=== PATIENT | male | born 1945 | race Caucasian/White ===

== ENCOUNTER 2024-05-18 10:40 | Outpatient (CLI) | payer MEDICARE, SELFPAY ==
--- OUTSIDE RECORDS SUMMARY | 2024-05-18 10:43 | XMS_ITS | Referral Summary ---
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 Impaired fasting glucose 12/23/2008 Gout 12/20/2008 Adenomatous polyp of colon 12/20/2008 Nondependent alcohol abuse 12/20/2008 Tobacco abuse 12/20/2008 DVT Overview: left lower extermity, warfarin x 3 months Immunizations Name Administration Dates Next Due Influenza (High Dose) 3 valent vaccine 5,06/30/2014,07/06/2013 Influenza (IIV3) PF 07/02/2012,07/01/2010,2008 Influenza Vaccine 65+ (Fluzone HD) 06/14/2020 Social History Tobacco Use Types Packs/Day Years Used Date Smoking Tobacco: Never Assessed Smokeless Tobacco: Current Snuff Comments:daily Alcohol Use Standard Drinks/Week Comments Yes 0 (1 standard drink = 0.6 oz pur e alcohol) beer 6-8/day Adolescent Education Answer Date Record ed Getting School Help Needed Not on file 07/07 Sex and Gender Information Value Date Recorded Sex Assigned at Not on file Gender Identity Not on file Sexual Orientation Not on file Last Filed Vital Signs Vital Sign Reading Time Taken Comments Blood Pressure 123/75 07/06/2013 9:13 AM CDT Pulse 71 07/06/2013 9:13 AM CDT Temperature 36.4 ??C (97.6 ??F) 07/02/2012 9:11 AM CD T Respiratory Rate - - Oxygen Saturation 98% 12/20/2008 9:39 AM CDT Inhaled Oxygen Concentration - - Weight 91.4 kg (201 lb 9 oz) 12/20/2008 9:39 AM CDT Height 177.8 cm (5' 10) 12/20/2008 9:39 AM CDT Body Mass Index 28.92 12/20/2008 9:39 AM CDT Plan of Treatment Not on file Care Teams Mold Cutting Machine Operator Relationship Specialty Start Date End Date Clinic, [place], [place] PCP - General 01/01/18
--- OUTSIDE RECORDS SUMMARY | 2024-05-18 10:43 | XMS_ITS | Clinical Summary ---
Author Organization [place] Address [address] [place] [address] Care Team Providers Care Program/Music Director Name Role Phone [facility] Primary Care Provider Allergies No known active [...] 07/02/2012,07/01/2010,2008 Influenza Vaccine 65+ (Fluzone HD) 06/14/2020 Family History Medical History Relation Comments Cancer Brother throat C.A.D. Father 82 Diabetes Father C.A.D. Mother CVA in 80s Relation Status Comments Brother Father Mother Social History Tobacco Use Types Packs/Day Years [...] of Treatment Not on file Care Teams Program/Music Director Relationship Specialty Start Date End Date Clinic, [place], [place] PCP - General 01/01/18
--- OUTSIDE RECORDS SUMMARY | 2024-05-18 10:43 | XMS_ITS | Encounter Summary ---
Author Organization [facility] Address [address] [place] [address]. [place] [address] Care Team Providers Care Wool Grower Name Role Phone [facility] Primary Care Provider Encounter Details Date Type Department Care Team (Late st Contact Info) Description 06/24/2018 Orders Only [facility] [address] [place] [phone] Richard Hunt MD [facility] [address] [place] [address] Personal history of thrombophlebitis (Primary Dx) Social History Tobacco Use Types Packs/Day Years Used Date Smoking Tobacco: Never Assessed Smokeless Tobacco: Current Snuff Comments:daily Alcohol Use Standard Drinks/Week Comments Yes 0 (1 standard drink = 0.6 oz pur e alcohol) beer 6-8/day Sex and Gender Information Value Date Recorded Sex Assigned at Not on file Gender Identity Not on file Sexual Orientation Not on file documented as of this encounter Plan of Treatment Not on file documented as of this encounter Visit Diagnoses Diagnosis Personal history of thrombophlebitis- Primary documented in this encounter Care Teams Wool Grower Relationship Specialty Start Date End Date [place], [place] PCP - General 01/01/18 documented as of this encounter
--- OUTSIDE RECORDS SUMMARY | 2024-05-18 10:44 | XMS_ITS | Encounter Summary ---
Author Organization [facility] Address [address] [place] [address]. [place] [address] Care Team Providers Care Fur Blowing Machine Attendant Name Role Phone Fam Wilson MD Primary Care Provider [facility] Primary Ca re Provider [facility] Primary Care Provider Encounter Details Date Type Department Care Team (Late st Contact Info) Description 04/15/[address] [phone] [place] [address] Social History Tobacco Use Types Packs/Day Years [...] on file documented as of this encounter Progress Notes * Trang Metz MD - 04/15/2009 10:31 PM CDT CC: SOB and Right sided chest pain. HPI: Jose Juan Messina is a 63 year old male with a history of gout who presented to the ER with a history of CP since Thursday. Has been getting increasingly worse. Primarily Right sided. Pleuritic. +SOBespecially with any exertion. No cough or fevers. No palpitations. Patient does have a history of DVT about 15 years ago. Was on Coumadin for several months. +brothers and father with history of DVT also. No history of recent surgery or immobilization. No abdominal pain. No history of rectal bleeding. Past Medical History Diagnosis Date ??? Sciatica 2004 resolved ??? DVT left lower extermity, warfarin x 3 months ??? Gout Past Surgical History Procedure Date ??? Surgical history of - elbow repair ??? Hernia repair, inguinal rt/lt 1971 LT ??? Arthroscopy knee rt/lt LT No Known Allergies. Current outpatient prescriptions Medication Sig ??? ALLOPURINOL 100 MG OR TABS 3 tabs daily Family History: Father history of DVT's, of a AK in his 80's. 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 with 2 children. Non smoker, but chews tobacco. Drinks anywhere from 6-12 beers a day. No history of withdrawal. Does not feel like he has a problem. Has not tried to cut back. Has not gotten in trouble secondary to his ETOH use. Full Code. Has a living will. Review Of Systems Skin: negative Eyes: negative Ears/Nose/Throat: negative Respiratory: as above Cardiovascular: as above Gastrointestinal: negative Genitourinary: negative Musculoskeletal: negative Neurologic: negative O: T-97.9, P-58, BP 142/87, 96% RA. Gen: Awake, alert, answering questions appropriately HEENT: TM's clear bilaterally. Mucous Membranes pink, moist. Sclera nonicteric. Neck: Supple. No adenopathy. Thyroid Midline. No masses CV: RRR No S3, S4, murmurs Lungs: CTA bilaterally Abdomen: + BS. Soft. NT/ND. No masses Extremities: No C/C/E Neuro: CN II-XII grossly intact. Strength 5/5 and symmetrical in extremities. FTN-FTF intact Labs See FCIS Bilateral lower extremity dopplers:Deep venous thrombosis involving the right superficial femoral and popliteal vein. 2. Normal left lower extremity venous Doppler CT Chest:-Extensive bilateral pulmonary emboli most marked on the right. 2. Increased density in the right lung base which could represent atelectasis or a developing infarction. 3. Remainder of the scan is negative. ASSESSMENT:/PLAN: 1. Bilateral PE, Rt. Lower Extremity DVT-history of DVT 15 years ago. Hemodynamically stable. Lovenox started in the ER. Coagulopathy workup started in the ER. Will start Coumadin. Monitor on Tele. Will have Heme/Onc see in AM- ?recommendations for futher workup and therapy. Patient very resistant to termite treater Coumadin use. 2. History of ETOH use-patient drinks 6-12 beers a day. No known history of withdrawal. Will start Protocol. Discussed risk of Coumadin and ETOH use. 3. History of Gout-stable. Will continue with Allopurinol. 4. F/E/N-taking good po's 5. Disp: Anticipate several day stay. Trang Metz MD Pager documented in this encounter Plan of Treatment Not on file documented as of this encounter Visit Diagnoses Not on filedocumented in this encounter Care Teams Fur Blowing Machine Attendant Relationship Specialty Start Date End Date Fam Wilson MD PCP - General 12/20/08 12/24/15 [facility] [address] [place] [address] PCP - General 12/25/15 12/31/17 [place], [place] PCP - General 01/01/18 documented as of this encounter
--- OUTSIDE RECORDS SUMMARY | 2024-05-18 10:44 | XMS_ITS | Continuity of Care Document ---
Author Name [facility] Organization [facility] Care Team Providers Care Museum Host/Hostess Name Role Phone [facility] Unavailable Unavailable Problems Combined list of problems from Department of Defense and Veterans Affairs facilities. It does not include entries that were removed or entered in error. 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 Young [facility] Benign essential hypertension (SNOMED CT 7708837) Active Condition [facility] Benign prostatic hyperplasia Active Condition [facility] Heartburn * (ICD-9-CM 787.1) Active Condition [facility] Hypercholesterolemia * (ICD-9-CM 272.0) [facility] 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 Medications Combined list of outpatient medications from Department of Defense and Veterans Affairs facilities.Medications provided include 1) outpatient medications from the last 15 months, and 2) patient-reported medications. Medication Details Route Status Patient Instructions Prescription Expires Prescription Number Last Dispense Date Ordering Provider Order Date Order Qty Source ALLOPURINOL 300MG TAB ALLOPURI NOL 300MG TAB Active TAKE ONE TABLET BY MOUTH EVERY DAY TO PREVENT GOUT Oct 27, 2023 90 Oct 27, 2024 [id number] M Apr 25, 2024 Fletcher PEREZ [facility] 10/27/2024 [id number] JOSE PEREZ Y 2023 90 [facility] ALLOPURINOL 300MG TAB ALLOPURI NOL 300MG TAB Disconti nued TAKE ONE TABLET BY MOUTH EVERY DAY TO PREVENT GOUT Oct 27, 2022 90 Oct 29, 2023 [id number] L Jul 29, 2023 Fletcher PEREZ [facility] OR[facility] DISCONT INUED 10/29/2023 [id number] JOSE PEREZ Y 2022 90 [facility] APIXABAN 5MG TAB APIXABAN 5MG TAB Active TAKE ONE TABLET BY MOUTH EVERY 12 HOURS TO PREVENT AND/OR TREAT BLOOD CLOTS Nov 24, 2023 180 Nov 25, 2024 [id number] C Mar 10, 2024 TAMYT LETTY,JOE Shirley [facility] 11/25/2024 [id number] ELIZABETH DUBOIS 2023 180 [facility] APIXABAN 5MG TAB APIXABAN 5MG TAB Disconti nued TAKE ONE TABLET BY MOUTH EVERY 12 HOURS TO PREVENT AND/OR TREAT BLOOD CLOTS Oct 11, 2022 180 Oct 12, 2023 [id number] B Sep 01, 2023 LUISITOWALT LETTY,JOE Shirley [facility] ORAL DISCONT INUED 10/12/2023 [id number] ELIZABETH DUBOIS 2022 180 [facility] GLUCOSAMINE CAP/TAB GLUCOSAM INE CAP/TAB Non-VA TAKE BY MOUTH EVERY DAY Jun 30, 2017 Non-VA Document ed by: Fletcher PEREZ Document ed at: [facility] JOSE PEREZ 2016 [facility] LISINOPRIL 40MG TAB LISINOPR [place] 40MG TAB Active TAKE ONE TABLET BY MOUTH EVERY DAY Oct 27, 2023 90 Oct 27, 2024 [id number] B Apr 25, 2024 [facility] 10/27/2024 [id number] 4 Yadiel SANTANA A 2023 90 [facility] LISINOPRIL 40MG TAB LISINOPR [place] 40MG TAB Disconti nued TAKE ONE TABLET BY MOUTH EVERY DAY Oct 27, 2022 90 Oct 29, 2023 [id number] A Jul 29, 2023 CALIN SANTANA [facility] ORAL DISCONT INUED 10/29/2023 [id number] 3 Yadiel SANTANA A 2022 90 [facility] SIMVASTATIN 20MG TAB SIMVASTA TIN 20MG TAB Active TAKE ONE TABLET BY MOUTH AT BEDTIME FOR CHOLESTE ROL FOR CHOLESTE ROL Nov 09, 2023 90 Nov 10, 2024 [id number] A Apr 29, 2024 CALIN SANTANA [facility] 11/10/2024 [id number] 4 Yadiel SANTANA A 2023 90 [facility] SIMVASTATIN 20MG TAB SIMVASTA TIN 20MG TAB Disconti nued TAKE ONE TABLET BY MOUTH AT BEDTIME FOR CHOLESTE ROL FOR CHOLESTE ROL Oct 29, 2022 90 Oct 30, 2023 [id number] Jul 29, 2023 CALIN SANTANA [facility] OR[facility] DISCONT INUED 10/30/2023 [id number] 3 Yadiel SANTANA A 2022 90 [facility] Immunizations Combined list of available immunizations from the Department of Defense and Veterans Affairs facilities. Immunization Series Date Given Administered By Site Reaction Lot Number CVX Code Drug Naturopathic Physician Status Comments Source TDAP 2022 HOANG BALTAZAR LEFT DELTO ID [id number] 115 complet ed [facility] INFLUENZA, UNSPECIFIED FORMULATION 2021 88 complet ed [facility] COVID-19 (PFIZER), MRNA, LNP-S, PF, 30 MCG/0.3 ML DOSE 3 2020 208 complet ed [facility] INFLUENZA, UNSPECIFIED FORMULATION 2020 88 complet ed [facility] COVID-19 (PFIZER), MRNA, LNP-S, PF, 30 MCG/0.3 ML DOSE 2 2020 208 complet ed PFR; [id number]; 1 [facility] COVID-19 (PFIZER), MRNA, LNP-S, PF, 30 MCG/0.3 ML DOSE 1 2020 208 complet ed PFR; [id number]; 1 [facility] ZOSTER RECOMBINANT 2 2019 187 complet ed [facility] ZOSTER RECOMBINANT 1 2018 187 complet ed [facility] INFLUENZA, HIGH DOSE SEASONAL 2018 135 complet ed [facility] INFLUENZA, SEASONAL, INJECTABLE, PRESERVATIVE FREE 2017 140 complet ed [facility] INFLUENZA, HIGH DOSE SEASONAL 2016 135 complet ed [facility] INFLUENZA, HIGH DOSE SEASONAL 2015 135 complet ed [facility] PNEUMOCOCCAL CONJUGATE PCV 13 2014 133 complet ed [id number], 09/2016 [facility] INFLUENZA, UNSPECIFIED FORMULATION 2012 88 complet ed [facility] PNEUMOCOCCAL, UNSPECIFIED FORMULATION 2012 109 complet ed [id number] 4Jul14 [facility] INFLUENZA, UNSPECIFIED FORMULATION 2011 88 complet ed [facility] INFLUENZA, UNSPECIFIED FORMULATION 2010 88 complet ed [facility] ZOSTER LIVE 2010 121 complet ed [employer], [id number], [id number] [facility] TDAP 2010 115 complet ed [employer] P[employer],c [id number], jan 01 2013 [facility] INFLUENZA, UNSPECIFIED FORMULATION 2009 88 complet ed per pt [facility] INFLUENZA, UNSPECIFIED FORMULATION 2008 88 complet ed [facility] TD(ADULT) UNSPECIFIED FORMULATION 2005 139 complet ed [facility] Results Combined list of recent chemistry, hematology and other laboratory results from Department of Defense and Veterans Affairs, ranging from 15 months to all on record, depending upon the facility. Order Name Results Value Reference Range Date Interpretation Specimen Comments Source CREATININ E(INCLUDE S EGFR) CREATININE [MASS/VOLUM E] IN SERUM OR PLASMA 1.0 mg/dL 0.7 - 1.2 06/09 Specimen Type: PLASMA No comment entered. Ordering Provider: MARIA A CAMARA Report Released Date/Time: May 28, 2023 03:16 PM Reporting Lab: [facility] [phone] Performing Lab: [facility] [address] [facility] CREATININ E(INCLUDE S EGFR) GLOMERULAR FILTRATION RATE/1.73 SQ M.PREDICTED [VOLUME RATE/AREA] IN SERUM, PLASMA OR BLOOD BY CREATININE- BASED FORMULA (CKD-EPI 2020) 78 60 06/09 Specimen Type: PLASMA No comment entered. Ordering Provider: MARIA A CAMARA Report Released Date/Time: May 28, 2023 03:16 PM Reporting Lab: [facility] [phone] Performing Lab: [facility] [address] [facility] AST/SGOT ASPARTATE AMINOTRANSF ERASE [ENZYMATIC ACTIVITY/VO LUME] IN SERUM OR PLASMA 21 U/L <34 - 34 06/09 Specimen Type: PLASMA No comment entered. Ordering Provider: MARIA A CAMARA Report Released Date/Time: May 28, 2023 03:16 PM Reporting Lab: [facility] [phone] Performing Lab: [facility] [address] [place] [facility] ALT/SGPT ALANINE AMINOTRANSF ERASE [ENZYMATIC ACTIVITY/VO LUME] IN SERUM OR PLASMA 23 U/L <55 - 55 06/09 Specimen Type: PLASMA No comment entered. Ordering Provider: MARIA A CAMARA Report Released Date/Time: May 28, 2023 03:16 PM Reporting Lab: [facility] [address] Performing Lab: [facility] [address] [place] [facility] CBC LEUKOCYTES [#/VOLUME] IN BLOOD BY AUTOMATED COUNT 6.96 10*3/u L 4.0 - 11.0 06/09 Specimen Type: BLOOD No comment entered. Ordering Provider: MARIA A CAMARA Report Released Date/Time: May 28, 2023 03:16 PM Reporting Lab: [facility] [address] Performing Lab: [facility] [address] [place] [facility] CBC ERYTHROCYTE S [#/VOLUME] IN BLOOD BY AUTOMATED COUNT 4.92 10*6/u L 4.6 - 6.2 06/09 Specimen Type: BLOOD No comment entered. Ordering Provider: MARIA A CAMARA Report Released Date/Time: May 28, 2023 03:16 PM Reporting Lab: [facility] [address] Performing Lab: [facility] [phone] [place] [facility] CBC HEMOGLOBIN [MASS/VOLUM E] IN BLOOD 16.1 g/dL 13.5 - 17.9 06/09 Specimen Type: BLOOD No comment entered. Ordering Provider: MARIA A CAMARA Report Released Date/Time: May 28, 2023 03:16 PM Reporting Lab: [facility] [phone] Performing Lab: [facility] [phone] [place] [facility] CBC HEMATOCRIT [VOLUME FRACTION] OF BLOOD BY AUTOMATED COUNT 44.7 41 - 54 06/09 Specimen Type: BLOOD No comment entered. Ordering Provider: MARIA A CAMARA Report Released Date/Time: May 28, 2023 03:16 PM Reporting Lab: [facility] [phone] Performing Lab: [facility] [address] [place] [facility] CBC MCV [ENTITIC VOLUME] BY AUTOMATED COUNT 90.9 fL 80 - 100 06/09 Specimen Type: BLOOD No comment entered. Ordering Provider: MARIA A CAMARA Report Released Date/Time: May 28, 2023 03:16 PM Reporting Lab: [facility] [phone] Performing Lab: [facility] [phone] [place] [facility] CBC MCH [ENTITIC MASS] BY AUTOMATED COUNT 32.7 pg 27 - 33 06/09 Specimen Type: BLOOD No comment entered. Ordering Provider: MARIA A CAMARA Report Released Date/Time: May 28, 2023 03:16 PM Reporting Lab: [facility] [phone] Performing Lab: [facility] [phone] [place] [facility] CBC MCHC [MASS/VOLUM E] BY AUTOMATED COUNT 36.0 g/dL 32.0 - 37.5 06/09 Specimen Type: BLOOD No comment entered. Ordering Provider: MARIA A CAMARA Report Released Date/Time: May 28, 2023 03:16 PM Reporting Lab: [facility] [phone] Performing Lab: [facility] [phone] [place] [facility] CBC PLATELETS [#/VOLUME] IN BLOOD BY AUTOMATED COUNT 237 10*3/u L 150 - 400 06/09 Specimen Type: BLOOD No comment entered. Ordering Provider: MARIA A CAMARA Report Released Date/Time: May 28, 2023 03:16 PM Reporting Lab: [facility] [phone] Performing Lab: [facility] [address] [place] [facility] CBC PLATELET MEAN VOLUME [ENTITIC VOLUME] IN BLOOD BY AUTOMATED COUNT 9.4 fL 7.4 - 10.4 06/09 Specimen Type: BLOOD No comment entered. Ordering Provider: MARIA A CAMARA Report Released Date/Time: May 28, 2023 03:16 PM Reporting Lab: [facility] [phone] Performing Lab: [facility] [phone] [place] [facility] CBC ERYTHROCYTE DISTRIBUTIO N WIDTH [RATIO] BY AUTOMATED COUNT 13.4 11.5 - 14.5 06/09 Specimen Type: BLOOD No comment entered. Ordering Provider: MARIA A CAMARA Report Released Date/Time: May 28, 2023 03:16 PM Reporting Lab: [facility] [address] Performing Lab: [facility] [address] [place] [facility] AST/SGOT ASPARTATE AMINOTRANSF ERASE [ENZYMATIC ACTIVITY/VO LUME] IN SERUM OR PLASMA 31 U/L <34 - 34 10/28 Specimen Type: PLASMA Comment: Elevated triglycerid e result from a non-fasting specimen should be interpreted with caution. A fasting panel is recommended for accurate triglycerid es when trigs are >200 from a non-fasting specimen. Ordering Provider: RACHEL SANTANA Report Released Date/Time: Oct 23, 2021 10:16 AM Reporting Lab: [facility] [phone] Performing Lab: [facility] [phone] [place] [facility] ALT/SGPT ALANINE AMINOTRANSF ERASE [ENZYMATIC ACTIVITY/VO LUME] IN SERUM OR PLASMA 40 U/L <55 - 55 10/28 Specimen Type: PLASMA Comment: Elevated triglycerid e result from a non-fasting specimen should be interpreted with caution. A fasting panel is recommended for accurate triglycerid es when trigs are >200 from a non-fasting specimen. Ordering Provider: RACHEL SANTANA Report Released Date/Time: Oct 23, 2021 10:16 AM Reporting Lab: [facility] [address] Performing Lab: [facility] [address] [place] [facility] CBC LEUKOCYTES [#/VOLUME] IN BLOOD BY AUTOMATED COUNT 6.41 10*3/u L 4.0 - 11.0 10/28 Specimen Type: BLOOD No comment entered. Ordering Provider: RACHEL SANTANA Report Released Date/Time: Oct 23, 2021 10:16 AM Reporting Lab: [facility] [phone] Performing Lab: [facility] [address] [place] [facility] CBC ERYTHROCYTE S [#/VOLUME] IN BLOOD BY AUTOMATED COUNT 4.66 10*6/u L 4.6 - 6.2 10/28 Specimen Type: BLOOD No comment entered. Ordering Provider: RACHEL SANTANA Report Released Date/Time: Oct 23, 2021 10:16 AM Reporting Lab: [facility] [phone] Performing Lab: [facility] [address] [place] [facility] CBC HEMOGLOBIN [MASS/VOLUM E] IN BLOOD 15.2 g/dL 13.5 - 17.9 10/28 Specimen Type: BLOOD No comment entered. Ordering Provider: RACHEL SANTANA Report Released Date/Time: Oct 23, 2021 10:16 AM Reporting Lab: [facility] [address] Performing Lab: [facility] [address] [place] [facility] CBC HEMATOCRIT [VOLUME FRACTION] OF BLOOD BY AUTOMATED COUNT 43.5 41 - 54 10/28 Specimen Type: BLOOD No comment entered. Ordering Provider: RACHEL SANTANA Report Released Date/Time: Oct 23, 2021 10:16 AM Reporting Lab: [facility] [phone] Performing Lab: [facility] [phone] [place] [facility] CBC MCV [ENTITIC VOLUME] BY AUTOMATED COUNT 93.3 fL 80 - 100 10/28 Specimen Type: BLOOD No comment entered. Ordering Provider: RACHEL SANTANA Report Released Date/Time: Oct 23, 2021 10:16 AM Reporting Lab: [facility] [phone] Performing Lab: [facility] [phone] [place] [facility] CBC MCH [ENTITIC MASS] BY AUTOMATED COUNT 32.6 pg 27 - 33 10/28 Specimen Type: BLOOD No comment entered. Ordering Provider: RACHEL SANTANA Report Released Date/Time: Oct 23, 2021 10:16 AM Reporting Lab: [facility] [address] Performing Lab: [facility] [address] [place] [facility] CBC MCHC [MASS/VOLUM E] BY AUTOMATED COUNT 34.9 g/dL 32.0 - 37.5 10/28 Specimen Type: BLOOD No comment entered. Ordering Provider: RACHEL SANTANA Report Released Date/Time: Oct 23, 2021 10:16 AM Reporting Lab: [facility] [address] Performing Lab: [facility] [address] [place] [facility] CBC PLATELETS [#/VOLUME] IN BLOOD BY AUTOMATED COUNT 181 10*3/u L 150 - 400 10/28 Specimen Type: BLOOD No comment entered. Ordering Provider: RACHEL SANTANA Report Released Date/Time: Oct 23, 2021 10:16 AM Reporting Lab: [facility] [address] Performing Lab: [facility] [address] [facility] CBC PLATELET MEAN VOLUME [ENTITIC VOLUME] IN BLOOD BY AUTOMATED COUNT 9.9 fL 7.4 - 10.4 10/28 Specimen Type: BLOOD No comment entered. Ordering Provider: RACHEL SANTANA Report Released Date/Time: Oct 23, 2021 10:16 AM Reporting Lab: [facility] [phone] Performing Lab: [facility] [address] [facility] CBC ERYTHROCYTE DISTRIBUTIO N WIDTH [RATIO] BY AUTOMATED COUNT 12.7 11.5 - 14.5 10/28 Specimen Type: BLOOD No comment entered. Ordering Provider: RACHEL SANTANA Report Released Date/Time: Oct 23, 2021 10:16 AM Reporting Lab: [facility] [phone] Performing Lab: [facility] [address] [facility] URIC ACID URATE [MASS/VOLUM E] IN SERUM OR PLASMA 5.7 mg/dL 3.5 - 7.2 10/28 Specimen Type: PLASMA Comment: Elevated triglycerid e result from a non-fasting specimen should be interpreted with caution. A fasting panel is recommended for accurate triglycerid es when trigs are >200 from a non-fasting specimen. Ordering Provider: RACHEL SANTANA Report Released Date/Time: Oct 23, 2021 10:16 AM Reporting Lab: [facility] [phone] Performing Lab: [facility] [address] [place] [facility] BASIC METABOLIC PANEL+MG CREATININE [MASS/VOLUM E] IN SERUM OR PLASMA 1.1 mg/dL 0.7 - 1.2 10/28 Specimen Type: PLASMA Comment: Elevated triglycerid e result from a non-fasting specimen should be interpreted with caution. A fasting panel is recommended for accurate triglycerid es when trigs are >200 from a non-fasting specimen. Ordering Provider: RACHEL SANTANA Report Released Date/Time: Oct 23, 2021 10:16 AM Reporting Lab: [facility] [phone] Performing Lab: [facility] [phone] [place] [facility] BASIC METABOLIC PANEL+MG UREA NITROGEN [MASS/VOLUM E] IN SERUM OR PLASMA 16 mg/dL 8 - 26 10/28 Specimen Type: PLASMA Comment: Elevated triglycerid e result from a non-fasting specimen should be interpreted with caution. A fasting panel is recommended for accurate triglycerid es when trigs are >200 from a non-fasting specimen. Ordering Provider: RACHEL SANTANA Report Released Date/Time: Oct 23, 2021 10:16 AM Reporting Lab: [facility] [phone] Performing Lab: [facility] [phone] [place] [facility] BASIC METABOLIC PANEL+MG GLUCOSE [MASS/VOLUM E] IN SERUM OR PLASMA 88 mg/dL 70 - 100 10/28 Specimen Type: PLASMA Comment: Elevated triglycerid e result from a non-fasting specimen should be interpreted with caution. A fasting panel is recommended for accurate triglycerid es when trigs are >200 from a non-fasting specimen. Ordering Provider: RACHEL SANTANA Report Released Date/Time: Oct 23, 2021 10:16 AM Reporting Lab: [facility] [phone] Performing Lab: [facility] [address] [place] [facility] BASIC METABOLIC PANEL+MG SODIUM [MOLES/VOLU ME] IN SERUM OR PLASMA 137 mmol/L 136 - 145 10/28 Specimen Type: PLASMA Comment: Elevated triglycerid e result from a non-fasting specimen should be interpreted with caution. A fasting panel is recommended for accurate triglycerid es when trigs are >200 from a non-fasting specimen. Ordering Provider: RACHEL SANTANA Report Released Date/Time: Oct 23, 2021 10:16 AM Reporting Lab: [facility] [phone] Performing Lab: [place] [phone] [place] [facility] BASIC METABOLIC PANEL+MG POTASSIUM [MOLES/VOLU ME] IN SERUM OR PLASMA 4.3 mmol/L 3.5 - 5.1 10/28 Specimen Type: PLASMA Comment: Elevated triglycerid e result from a non-fasting specimen should be interpreted with caution. A fasting panel is recommended for accurate triglycerid es when trigs are >200 from a non-fasting specimen. Ordering Provider: RACHEL SANTANA Report Released Date/Time: Oct 23, 2021 10:16 AM Reporting Lab: [facility] [phone] Performing Lab: [facility] [phone] [place] [facility] BASIC METABOLIC PANEL+MG CHLORIDE [MOLES/VOLU ME] IN SERUM OR PLASMA 105 mmol/L 98 - 107 10/28 Specimen Type: PLASMA Comment: Elevated triglycerid e result from a non-fasting specimen should be interpreted with caution. A fasting panel is recommended for accurate triglycerid es when trigs are >200 from a non-fasting specimen. Ordering Provider: RACHEL SANTANA Report Released Date/Time: Oct 23, 2021 10:16 AM Reporting Lab: [facility] [phone] Performing Lab: [facility] [phone] [place] [facility] BASIC METABOLIC PANEL+MG CARBON DIOXIDE, TOTAL [MOLES/VOLU ME] IN SERUM OR PLASMA 25 mmol/L 22 - 29 10/28 Specimen Type: PLASMA Comment: Elevated triglycerid e result from a non-fasting specimen should be interpreted with caution. A fasting panel is recommended for accurate triglycerid es when trigs are >200 from a non-fasting specimen. Ordering Provider: RACHEL SANTANA Report Released Date/Time: Oct 23, 2021 10:16 AM Reporting Lab: [facility] [phone] Performing Lab: [facility] [phone] [place] [facility] BASIC METABOLIC PANEL+MG CALCIUM [MASS/VOLUM E] IN SERUM OR PLASMA 9.1 mg/dL 8.4 - 10.2 10/28 Specimen Type: PLASMA Comment: Elevated triglycerid e result from a non-fasting specimen should be interpreted with caution. A fasting panel is recommended for accurate triglycerid es when trigs are >200 from a non-fasting specimen. Ordering Provider: RACHEL SANTANA Report Released Date/Time: Oct 23, 2021 10:16 AM Reporting Lab: [facility] [phone] Performing Lab: [facility] [phone] [place] [facility] BASIC METABOLIC PANEL+MG MAGNESIUM [MASS/VOLUM E] IN SERUM OR PLASMA 2.0 mg/dL 1.6 - 2.6 10/28 Specimen Type: PLASMA Comment: Elevated triglycerid e result from a non-fasting specimen should be interpreted with caution. A fasting panel is recommended for accurate triglycerid es when trigs are >200 from a non-fasting specimen. Ordering Provider: RACHEL SANTANA Report Released Date/Time: Oct 23, 2021 10:16 AM Reporting Lab: [facility] [phone] Performing Lab: [facility] [address] [place] [facility] BASIC METABOLIC PANEL+MG ANION GAP IN SERUM OR PLASMA 7 mmol/L 5 - 15 10/28 Specimen Type: PLASMA Comment: Elevated triglycerid e result from a non-fasting specimen should be interpreted with caution. A fasting panel is recommended for accurate triglycerid es when trigs are >200 from a non-fasting specimen. Ordering Provider: RACHEL SANTANA Report Released Date/Time: Oct 23, 2021 10:16 AM Reporting Lab: [facility] [address] Performing Lab: [facility] [address] [place] [facility] BASIC METABOLIC PANEL+MG GLOMERULAR FILTRATION RATE/1.73 SQ M.PREDICTED [VOLUME RATE/AREA] IN SERUM, PLASMA OR BLOOD BY CREATININE- BASED FORMULA (CKD-EPI) 70 60 10/28 Specimen Type: PLASMA Comment: Elevated triglycerid e result from a non-fasting specimen should be interpreted with caution. A fasting panel is recommended for accurate triglycerid es when trigs are >200 from a non-fasting specimen. Ordering Provider: RACHEL SANTANA Report Released Date/Time: Oct 23, 2021 10:16 AM Reporting Lab: [facility] [phone] Performing Lab: [facility] [address] [place] [facility] PROTHROMB IN TIME/INR INR IN PLATELET POOR PLASMA BY COAGULATION ASSAY 1.1 0.8 - 1.1 10/28 Specimen Type: PLASMA No comment entered. Ordering Provider: RACHEL SANTANA Report Released Date/Time: Oct 23, 2021 10:16 AM Reporting Lab: [facility] [phone] Performing Lab: [facility] [phone] [facility] PROTHROMB IN TIME/INR PROTHROMBIN TIME (PT) 13.1 s 9.4 - 12.5 10/28 H Specimen Type: PLASMA No comment entered. Ordering Provider: RACHEL SANTANA Report Released Date/Time: Oct 23, 2021 10:16 AM Reporting Lab: [facility] [phone] Performing Lab: [facility] [address] [facility] Encounters Combined list of: 1) Encounters from Department of Veterans Affairs facilities going back up to thelast 18 months. 2) Encounters from the Department of Defense facilities going back up to 280 months. Location Location Details Encounter Type Encounter Number Reason For Visit Attending Provider ADM Date DC Date Status Disposition Source [place] [facility] Outpatient Encounter [id number] 05/28 [place] [facility] [place] [facility] QNHP OL DIG ASSMT&MGMT 5-10 [id number] Diagnos is: ICD-10- CM Z79.01 intermediate (curren t) use of anticoa gulants
BOOKWALTER ,LICHA M 11/24 [facility] [facility] Social History Combined list of available smoking, tobacco, and other social history from Department of Defense and Veterans Affairs facilities. Social History Type Response Date Comment Sourc e Tobacco smoking status NHIS [facility]-TOBACCO QUIT 15 YRS OR MORE 10/28/2022 [facility] [place] of [place] use [place] FOR[place] US[place] 10/28/2022 [facility] [place] of tobacco use [place] US[place] 10/23/2021 [facility] History of tobacco use [place] USE CO UNSEL NO 08/12/2019 [facility] [place] of tobacco use [place] FOR[place] US[place] 08/27/2018 [facility] History of tobacco use CURRENT TOBACCO USER 06/30/2017 [facility] History of tobacco use CURRENT TOBACCO USER 06/06/2016 [facility] History of tobacco use CURRENT TOBACCO USER 05/11/2015 [facility] History of tobacco use CURRENT TOBACCO USER 04/21/2014 [facility] History of tobacco use CURRENT TOBACCO USER 02/09/2013 [facility] History of tobacco use CURRENT TOBACCO USER 12/22/2011 [facility] History of tobacco use CURRENT TOBACCO USER 04/02/2010 [facility] Advance Directives List of completed, amended, or rescinded Advance Directives on record at Department of Veterans Affairs facilities. An actual copy of the Directive is not included. Date Advance Directive Provider Source 01/26/2012 ADVANCE DIRECTIVE DISCUSSION SARANYA REGAN [facility]
--- OUTSIDE RECORDS SUMMARY | 2024-05-18 10:44 | XMS_ITS | Clinical Summary ---
Author Organization [facility] Address [place], [place] [address] Care Team Providers Care Director Fundraising Name Role Phone [place] Primary Care Provider [phone] Allergies Active Allergy Reactions Criticality Noted Date Comments Unlisted Allergen (Include Detail In Comments) Runny Nose 02/27/2017 Hay fever-Sneezing, itchy eyes Medications Medication Sig Dispensed Refills Start Date End Date Status allopurinol (ZYLOPRIM) 100 mg tablet Take by mouth. 12/20/2008 Active warfarin (COUMADIN) 5 mg tablet Take 1 tablet by mouth once daily. 1.5 tablets Thursday, Thursday, Thu, , Thursday and 2 tablets Thursday and Thursday. 0 02/27/2017 Active lisinopril (PRINIVIL; ZESTRIL) 10 mg tablet Take 1 tablet by mouth once daily. 0 02/27/2017 Active simvastatin (ZOCOR) 40 mg tabletIndications:Hype rlipidemia, unspecified hyperlipidemia type Take 0.5 tablets by mouth at bedtime. 0 12/26/2019 Active tiZANidine (ZANAFLEX) 4 mg tabletIndications:Musc le spasm of back Take 1 tablet once daily and at bedtime as needed for muscle spasm. 30 tablet 12/26/2019 Active traMADoL (ULTRAM) 50 mg tabletIndications:Epid idymitis One oral twice daily as needed. 20 tablet 02/10/2020 Active Active Problems Problem Noted Date Diagnosed Date Epididymitis 02/02/2020 HTN (hypertension) 02/27/2017 History of gout 02/27/2017 Resolved Problems Problem Noted Date Diagnosed Date Resolved Date PE (pulmonary thromboembolism) 02/27/2017 02/02/2020 Overview: [facility] managing [facility]farin Social History Tobacco Use Types Packs/Day Years Used Date Smoking Tobacco: Former Smokeless Tobacco: Current Chew Tobacco Cessation:Ready to Q uit: No; Counseling Given: Yes Comments:quit smoking 30 years ago Alcohol Use Standard Drinks/Week Comments Yes 42 (1 standard drink = 0.6 oz pu re alcohol) 6-7 cans beer/day PHQ-2 Answer Date Recorded PHQ-2 TOTAL SCORE 0 12/26/2019 Social Connections Answer Date Recorded Frequency of Communication with Friends and Fami ly Not on file 09/21/2021 Financial Resource Strain Answer Date R ecorded Difficulty of Paying Living Expenses Not on file 09/21/2021 Difficulty of Paying Living Expenses Not on file 09/21/2021 Sex and Gender Information Value Date Recorded Sex Assigned at Not on file Gender Identity Not on file Sexual Orientation Not on file Obstetrics History Last Filed Vital Signs Vital Sign Reading Time Taken Comments Blood Pressure 101/59 02/20/2020 12:55 PM CDT Pulse 70 02/20/2020 12:55 PM CDT Temperature 36.4 ??C (97.6 ??F) 02/20/2020 1 2:55 PM CDT Respiratory Rate - - Oxygen Saturation 97% 02/20/2020 12: 55 PM CDT Inhaled Oxygen Concentration - - Weight 96.1 kg (211 lb 14.4 oz) 020 12:55 PM CDT Height 177.3 cm (5' 9.8) 12/26/2019 10 :23 AM CDT Body Mass Index 30.58 12/26/2019 10:23 AM CDT Plan of Treatment Health Maintenance Due Date Last Done Comments Tdap 1956 Hepatitis C screening for age 18-79 1965 Tetanus booster 1967 Zoster (shingles) series for age 50+ (1 of 2) 1997 Medicare Wellness for age 65+ 2012 Pneumococcal series for age 65+ (1 of 1 - PCV) 2012 BMI (ht and wt on same day) for age 18+ 12/25/2020 0 12/26/2019, 02/27/2017 Depression screening for age 12+ 12/25/2020 12/26/19 20 COVID-19 vaccine series ( season) 2023 Influenza for age 65+ 05/22/2024 Care Teams Director Fundraising Relationship Specialty Start Date End Date [place] [address] [place] [id number] PCP - General 02/02/20
--- NOTE | 2024-05-18 11:15 | CRLHL7_ITS ---
For Patients: As a result of the Century Cures Act, medical imaging exams and procedure reports are released immediately into your electronic medical record. You may view this report before your referring provider. If you have questions, please contact your health care provider. Indication: Left hip pain Comparison: 05/10/2024 Procedure : Informed consent was obtained. The site was marked. Time-out was performed. The skin of the left hip was cleansed with ChloraPrep. A sterile drape was placed. 8 cc of 1 percent lidocaine was administered for superficial anesthesia. Subsequently a 22 gauge spinal needle was introduced into the left hip joint under intermittent fluoroscopic guidance. Injection of 7 cc 1 percent lidocaine and 2 cc 40 milligram/cc Depo-Medrol then performed into the left hip joint. The needle was removed and hemostasis achieved with direct pressure. A dressing was placed. The patient tolerated the procedure well without immediate complication and was immediately sent to MRI for imaging. Total fluoroscopy time 14 seconds. Impression: Fluoroscopic injection the left hip with 80 milligrams of Depo-Medrol. Dictated by Scott Bazan MD @ 05/19/2024 1:14:32 PM (Electronically Signed)
== END 2024-05-18 10:41 | disposition home or self-care (01) ==
LOC: RAD 10:42
PROVIDERS: Visit Provider Physician Assistant Surgical
DX: M16.12 Unilateral primary osteoarthritis, left hip (principal); M25.552 Pain in left hip
CPT/HCPCS: 20610; 77002; J1010; Q9966